=== PATIENT | male | born 1995 | race Caucasian/White ===

== ENCOUNTER 2016-10-13 22:44 | Emergency (ER) | payer OTHER ==
[~2016-10-13] VITALS: Ht 172.7 cm; Wt 77.1 kg
[2016-10-13 22:45] VITALS: BP 122/71
[2016-10-14] MEDS ORDERED: PERMETHRIN 5% CREAM 60 GM TOP STA (00:40)
[2016-10-14] MEDS ORDERED: PERM5CR TOP (00:59)
== END 2016-10-14 01:25 | disposition home or self-care (01) ==
LOC: M ED 23:50
DX: B86 Scabies (principal)

== ENCOUNTER 2022-01-07 21:38 | Emergency (ER) | payer OTHER ==
[~2022-01-07] VITALS: Ht 172.7 cm; Wt 85.3 kg
[~2022-01-07 21:38] MED LIST: PERM5CRE3 TOP
[2022-01-08] MEDS ORDERED: OXYCODONE/APAP 5MG/325MG(HOME DOSE PACK) PO ONE (01:55)
[2022-01-08] MEDS ORDERED: ANUS2.5C2 TOP (01:56)
[2022-01-08 02:25] VITALS: BP 128/65
== END 2022-01-08 02:39 | disposition home or self-care (01) ==
LOC: M ED 21:38
DX: K64.5 Perianal venous thrombosis (principal)